=== PATIENT | male | born 1955 | race Caucasian/White ===

== ENCOUNTER → 2017-02-09 | Day surgery (SDC) | payer OTHER ==
[2017-02-08 09:42] LABS: HCT 45.4 % (42.0-52.0); HGB 15.1 g/dl (13.2-18.0); MCH 27.9 pg (25.0-31.0); MCHC 33.3 g/dL (32.0-36.0); MCV 83.8 fL (78.0-100.0); MPV 10.2 fL (6.0-9.5); RBC 5.42 M/uL (4.70-6.00); RDW 15.1 % (11.5-14.0); WBC 6.9 K/uL (4.0-10.5)
[2017-02-08 09:59] LABS: ALBUMIN 4.2 g/dL (3.4-4.8); BILIRUBIN - TOTAL 0.6 mg/dL (0.1-1.0); CREATININE 0.8 mg/dL (0.7-1.2); GLOBULIN (CALCULATION) 3.1 g/dL (2.2-4.2); POTASSIUM 4.2 mmol/L (3.5-5.1); TOTAL PROTEIN 7.3 g/dL (6.4-8.3)
== END | disposition home or self-care (01) ==
LOC: FAS 06:09
PROVIDERS: Orthopaedic Surgery
DX: M75.111 Incomplete rotator cuff tear or rupture of right shoulder, not specified as traumatic (principal); M75.41 Impingement syndrome of right shoulder; M17.11 Unilateral primary osteoarthritis, right knee; S46.211A Strain of muscle, fascia and tendon of other parts of biceps, right arm, initial encounter; E11.9 Type 2 diabetes mellitus without complications; Z91.09 Other allergy status, other than to drugs and biological substances; Z90.49 Acquired absence of other specified parts of digestive tract; Z95.1 Presence of aortocoronary bypass graft; Z79.84 Long term (current) use of oral hypoglycemic drugs; Z79.02 Long term (current) use of antithrombotics/antiplatelets; Z79.82 Long term (current) use of aspirin; Z79.899 Other long term (current) drug therapy; Z98.890 Other specified postprocedural states
CPT/HCPCS: 36415; 71020; 80053; J0690; J2704; J3010